=== PATIENT | female | born 1995 | race Caucasian/White ===

== ENCOUNTER 2016-11-29 09:58 | Emergency (ER) | payer MEDICAID ==
--- NOTE | 2016-11-29 10:15 | ER Document Report ---
ED Medical Screen (RME) - General Stated Complaint: EYE PAIN Notes: onset: yesterday sore throat, cough, eye drainage drainage and erythema b/l eyes with clear drainage noncontact wearer I have greeted and performed a rapid initial assessment of this patient. A comprehensive ED assessment and evaluation of the patient, analysis of test results and completion of the medical decision making process will be conducted by additional ED providers. TRAVEL OUTSIDE OF THE [place] IN LAST 30 DAYS: No - Related Data Allergies/Adverse Reactions: No Known Allergies Allergy (Verified 11/29/16 10:13) Past Medical History Pulmonary Medical History: Reports: Hx Asthma - Immunizations Immunizations up to date: Yes Hx Diphtheria, Pertussis, Tetanus Vaccination: Yes
--- NOTE | 2016-11-29 11:21 | ER Document Report ---
ED General - General Chief Complaint: Cold Symptoms Stated Complaint: EYE PAIN Mode of Arrival: Ambulatory Information source: Patient Notes: 21-year-old female presents with complaints of a lateral eye redness discharge ongoing since yesterday. Patient denies any fevers or chills nausea vomiting or diarrhea. Patient denies any visual difficulty TRAVEL OUTSIDE OF THE [place] IN LAST 30 DAYS: No - HPI Onset: Yesterday Onset/Duration: Persistent Quality of pain: Achy Severity: Mild Pain Level: 1 Associated symptoms: Other Exacerbated by: Denies Relieved by: Denies Similar symptoms previously: No Recently seen / treated by doctor: No - Related Data Allergies/Adverse Reactions: No Known Allergies Allergy (Verified 11/29/16 10:13) Past Medical History - Social History Smoking Status: Current Every Day Smoker Cigarette use (# per day): No Chew tobacco use (# tins/day): No Smoking Education Provided: No Frequency of alcohol use: None Drug Abuse: None Family History: Arthritis, DM, Hypertension Patient has suicidal ideation: No Patient has homicidal ideation: No Pulmonary Medical History: Reports: Hx Asthma Renal/ Medical History: Denies: Hx Peritoneal Dialysis - Immunizations Immunizations up to date: Yes Hx Diphtheria, Pertussis, Tetanus Vaccination: Yes Review of Systems - Review of Systems Notes: REVIEW OF SYSTEMS: CONSTITUTIONAL : Denies fever, chills, or sweats. Denies recent illness. EENT: Admits to sore throat admits to discharge from the eyes and redness CARDIOVASCULAR: Denies chest pain. Denies palpitations or racing or irregular heart beat. Denies ankle edema. RESPIRATORY: Denies cough, cold, or chest congestion. Denies shortness of breath, difficulty breathing, or wheezing. GASTROINTESTINAL: Denies abdominal pain or distention. Denies nausea, vomiting , or diarrhea. Denies blood in vomitus, stools, or per rectum. Denies black, tarry stools. Denies constipation. GENITOURINARY: Denies difficulty urinating, painful urination, burning, frequency, blood in urine, or discharge. FEMALE GENITOURINARY: Denies vaginal bleeding, heavy or abnormal periods, irregular periods. Denies vaginal discharge or odor. MUSCULOSKELETAL: Denies back or neck pain or stiffness. Denies joint pain or swelling. SKIN: Denies rash, lesions or sores. HEMATOLOGIC : Denies easy bruising or bleeding. LYMPHATIC: Denies swollen, enlarged glands. NEUROLOGICAL: Denies confusion or altered mental status. Denies passing out or loss of consciousness. Denies dizziness or lightheadedness. Denies headache. Denies weakness or paralysis or loss of use of either side. Denies problems with gait or speech. Denies sensory loss, numbness, or tingling. Denies seizures. PSYCHIATRIC: Denies anxiety or stress. Denies depression, suicidal ideation, or homicidal ideation. ALL OTHER SYSTEMS REVIEWED AND NEGATIVE. Dictation was performed using [employer] voice recognition software PHYSICAL EXAMINATION: GENERAL: Well-appearing, well-nourished and in no acute distress. HEAD: Atraumatic, normocephalic. EYES: Pupils equal round extraocular movements intact, conjunctiva are bilaterally injected left were some right with small amount of discharge ENT: Nares patent NECK: Normal range of motion LUNGS: No respiratory distress Musculoskeletal: Normal range of motion NEUROLOGICAL: Normal speech, normal gait. PSYCH: Normal mood, normal affect. SKIN: Warm, Dry, normal turgor, no rashes or lesions noted. Physical Exam - Vital signs Vitals: Temp Pulse Resp BP Pulse Ox 97.9 F 116 H 20 135/88 H 96 11/29/16 10:16 11/29/16 10:16 11/29/16 10:16 11/29/16 10:16 11/29/16 10:16 Course - Re-evaluation Re-evalutation: 11/29/16 11:16 Physical examination is consistent with conjunctivitis, patient otherwise appears stable. I will start her on antibiotics. Patient has been instructed on very close return precautions as well as precautions for family After performing a Medical Screening Examination, I estimate there is LOW risk for a RETAINED CORNEAL or LID FOREIGN BODY, DEEP SPACE INFECTION (e.g., ORBITAL CELLULITIS OR ABSCESS), ACUTE GLAUCOMA, PENETRATING GLOBE INJURY, RETINAL DETACHMENT, or MENINGITIS thus I consider the discharge disposition reasonable. Also, there is no evidence or peritonitis, sepsis, or toxicity. The patient and I have discussed the diagnosis and risks, and we agree with discharging home with outpatient follow-up with the understanding that symptoms and presentations can change. We also discussed returning to the Emergency Department immediately if new or worsening symptoms occur. We have discussed the symptoms which are most concerning (e.g., changing or worsening pain, vision changes, neck stiffness or fever) that necessitate immediate return. - Vital Signs Vital signs: Temp Pulse Resp BP Pulse Ox 97.9 F 116 H 20 135/88 H 96 11/29/16 10:16 11/29/16 10:16 11/29/16 10:16 11/29/16 10:16 11/29/16 10:16 Discharge - Discharge Clinical Impression: Tachycardia Conjunctivitis Qualifiers: Conjunctivitis type: acute Acute conjunctivitis type: bacterial Laterality: bilateral Qualified Code(s): H10.33 - Unspecified acute conjunctivitis, bilateral Condition: Stable Disposition: HOME, SELF-CARE Instructions: Conjunctivitis ([facility]) Prescriptions: Ciprofloxacin HCl [Ciloxan 0.3% Oph Soln 2.5 ml] 2 drop OU Q6 10 Days Referrals: ALEM GOLDSTEIN MD [ACTIVE STAFF] - Follow up tomorrow
[2016-11-29 11:37] VITALS: BP 120/80
== END 2016-11-29 11:36 | disposition home or self-care (01) ==
LOC: ER 09:58
DX: H10.33 Unspecified acute conjunctivitis, bilateral (principal); R00.0 Tachycardia, unspecified
CPT/HCPCS: 87070; 87077; 87880; 99283

== ENCOUNTER → 2018-11-21 | Outpatient (CLI) | payer SELFPAY ==
--- NOTE | 2018-11-21 15:35 | RADIOLOGY REPORT (SQ) ---
EXAM DESCRIPTION: U/S OB 14+ TRNABD 1GES W/O DOP COMPLETED DATE/TIME: 11/21/2018 2:36 pm REASON FOR STUDY: Z34.02 ENCNTR FOR SUPRVSN OF NORMAL FIRST PREG, SECOND TRIMESTER Z34.02 ENCNTR FO R SUPRVSN OF NORMAL FIRST PREG, SECOND TRIME LMP 07/15/2018 COMPARISON: None. TECHNIQUE: Static and Dynamic grayscale imaging performed of gravid uterus using transabdominal appr oach. Additional selected color Doppler and spectral images recorded. All stored on PACS. LIMITATIONS: None. FINDINGS: FETUSES SEEN:1 EGA: 28 weeks 0 days Calculated using BPD,FL,HC,AC documented on images. The is 10 weeks f urther advanced than would be expected from the given LMP. ANITHA: 02/13/2019 EFW: 961+/- 142 grams PERCENTILE: Percentile not calculated. LVP: 4 cm. PLACENTA: Posterior. There are areas of decreased echogenicity scattered in the placenta suggesting venous lakes. GRADE: I PRESENTATION: Cephalic. ANATOMY: HEART RATE: 168 beats per minute. FOUR CHAMBER HEART: Visualized. THREE VESSEL CORD: Yes. CORD INSERTION: Visualized. KIDNEYS AND BLADDER: Visualized. Appear normal. STOMACH: Visualized. Appears normal. SPINE: Normal as visualized. BRAIN AND LATERAL VENTRICLES: Visualized. Appear normal. OTHER: No other significant finding. MATERNAL ADNEXA: Maternal ovaries not visualized. CERVICAL LENGTH: Not measured. Closed. OTHER: No other significant finding. IMPRESSION: There is a live intrauterine gestation of 28 weeks 0 days. This is almost [address] than would be expected from the given LMP. No anomalies are seen. Trimester of : Third trimester - 28 weeks to delivery. TECHNICAL DOCUMENTATION: JOB ID: [id number] [employer]- All Rights Reserved Reading location - IP/workstation name: [email or web address]
== END ==
LOC: RAD 16:24
PROVIDERS: ATTEND Nurse Practitioner
DX: Z34.02 Encounter for supervision of normal first pregnancy, second trimester (principal)
CPT/HCPCS: 76805

== ENCOUNTER 2019-02-13 06:15 | Outpatient (CLI) | payer MEDICAID ==
[2019-02-13 08:41] LABS: APPEARANCE,URINE CLEAR; BILIRUBIN,URINE NEGATIVE (NEGATIVE); COLOR,URINE YELLOW; GLUCOSE, URINE NEGATIVE (NEGATIVE); KETONES,URINE NEGATIVE (NEGATIVE); LEUKOCYTE ESTERASE,URINE NEGATIVE (NEGATIVE); NITRITE,URINE NEGATIVE (NEGATIVE); PROTEIN,URINE NEGATIVE (NEGATIVE); URINE SPECIFIC GRAVITY 1.009; UROBILINOGEN,URINE NEGATIVE mg/dL (<2.0)
[2019-02-13 09:07] LABS: URINE AMPHETAMINES SCREEN NEGATIVE; URINE BARBITURATES SCREEN NEGATIVE; URINE BENZODIAZEPINES SCREEN NEGATIVE; URINE COCAINE SCREEN NEGATIVE; URINE MARIJUANA (THC) SCREEN NEGATIVE; URINE METHADONE SCREEN NEGATIVE; URINE PHENCYCLIDINE SCREEN NEGATIVE
--- NOTE | 2019-02-13 10:14 | Non Stress Test Report ---
Non Stress Test Datetime Report Generated by CPN: 02/13/2019 10:14 INDICATION Indication for Study: Ordered by Provider MONITORING Monitor Explained: Monitor Explained; Test Explained; Patient Verbalized Understanding Time on Monitor: 02/13/2019 06:55 Time off Monitor: 02/13/2019 07:37 NST Duration: 42 NST INTERVENTIONS NST Interventions: PO Hydration Physician Notified NST: N. Amin CNM BABY A: [id number] BABY A Movement : Present Contraction Frequency : 6-7 FHR Baseline : 140 Accelerations : 15X15 Decelerations : None Variability : Moderate 6-25bpm NST Review: Meets Criteria for Reactive NST NST Review and Verified By : RODRIGUEZ Acharya Results: Reactive NST REPORT Report Trigger: Send Report
== END 2019-02-13 08:55 | disposition home or self-care (01) ==
LOC: LC 06:15
PROVIDERS: ATTEND Obstetrics & Gynecology Gynecology
PROC: 4A1HXCZ Monitoring of Products of Conception, Cardiac Rate, External Approach (ICD-10-PCS; principal; 2019-02-13)
DX: O47.1 False labor at or after 37 completed weeks of gestation (principal); Z3A.40 40 weeks gestation of pregnancy
CPT/HCPCS: 80307; 81005

== ENCOUNTER 2019-02-13 12:52 | Inpatient (IN) | payer MEDICAID ==
[2019-02-13] MEDS ORDERED: RINGERS SOLUTION,LACTATED 1,000 ML IV ONE (13:16)
[2019-02-13] MEDS ORDERED: RINGERS SOLUTION,LACTATED 1,000 ML IV PRN (13:16)
--- NOTE | 2019-02-13 13:22 | Admission Physical ---
Datetime Report Generated by CPN: 02/13/2019 13:22 CURRENT ADMISSION Chief Complaint: Uterine Contractions; Maternal Discomfort Admit Impression : Term, Intrauterine ; Active Labor Admit Plan: Admit to Unit; Initiate Labor Protocol ALLERGIES Medication Allergies: No Medication Allergies: No Known Allergies (02/13/2019) Latex: No Latex Allergies OBSTETRICAL HISTORY EDC: 02/13/2019 00:00 : 1 Para: 0 Current Procedures: Ultrasound; NST Obstetrical History Comments: G1: current SEE RECORDS Cigarettes: Current Everyday Smoker. [id number] PHYSICAL EXAM General: Normal HEENT: Normal Neurologic: Normal Thyroid: Normal Heart: Normal Lungs: Normal Breast: Normal Back: Normal Abdomen: Normal Genitourinary Exam: Normal Extremities: Normal DTRs: Normal Pelvic Type: Adequate Vital Signs: Reviewed; Within Normal Limits VAGINAL EXAM Dilatation: 6 Effacement: 90 Station: -1 MEMBRANES Membranes: Bulging FETUS A EGA: 40.0 Monitoring: External US FHR- Baseline: 135 Variability: Moderate 6-25bpm Accelerations: 15X15 Decelerations: Early Admit Comment: Pt presents for a second time today c/o increasing contractions. Sent home earlier this morning with no cervical change. Denies SROM or bleeding. VE /-1 w/ BBOW. Pt considering an epidural. PLan to admit in active labor. Attending MD is Dr Younger INFORMED CONSENT Assignment: Pebbles Huang MD Signature: with User ID: [email or web address] : with User ID: [email or web address]
[2019-02-13 14:05] LABS: ABSOLUTE EOSINOPHILS # (AUTO) 0.1 10^3/uL (0.0-0.6); ABSOLUTE LYMPHOCYTES (AUTO) 1.5 10^3/uL (0.5-4.7); ABSOLUTE MONOCYTES (AUTO) 0.8 10^3/uL (0.1-1.4); ABSOLUTE NEUT (AUTO) 12.4 10^3/uL (1.7-8.2); BASOPHILS % (AUTO) 0.2 % (0-2); EOSINOPHILS % (AUTO) 0.4 % (0-6); HEMATOCRIT 35.3 % (36.0-47.0); HEMOGLOBIN 12.5 g/dL (12.0-15.5); MEAN CORPUSCULAR HEMOGLOBIN 31.8 pg (27.0-33.4); MEAN CORPUSCULAR HGB CONC 35.3 g/dL (32.0-36.0); MEAN CORPUSCULAR VOLUME 90 fl (80-97); MONOCYTES % (AUTO) 5.1 % (3-13); PLATELET COUNT 258 10^3/uL (150-450); RED BLOOD COUNT 3.92 10^6/uL (3.72-5.28); RED CELL DISTRIBUTION WIDTH 13.2 % (11.5-14.0); SEGMENTED NEUTROPHILS % (AUTO) 84.3 % (42-78); TOTAL CELLS COUNTED % (AUTO) 100 %; WHITE BLOOD COUNT 14.7 10^3/uL (4.0-10.5)
[2019-02-13 14:17] LABS: URINE AMPHETAMINES SCREEN NEGATIVE; URINE BARBITURATES SCREEN NEGATIVE; URINE BENZODIAZEPINES SCREEN NEGATIVE; URINE COCAINE SCREEN NEGATIVE; URINE MARIJUANA (THC) SCREEN NEGATIVE; URINE METHADONE SCREEN NEGATIVE; URINE PHENCYCLIDINE SCREEN NEGATIVE
[2019-02-13] MEDS ORDERED: FENTANYL CITRATE INJ/PF 100 MCG/2 ML AMPUL ONE (14:41)
[2019-02-13] MEDS ORDERED: EPHEDRINE SULFATE INJ 50 MG/1 ML AMPULE ONE (14:41)
[2019-02-13] MEDS ORDERED: PHENYLEPHRINE HCL INJ/PF 10 MG/1 ML SDV ONE (14:41)
[2019-02-13] MEDS ORDERED: BUPIVACAINE HCL 0.25 % INJ/PF (2.5 MG/1 ML) 30 ML VIAL ONE (14:42)
[2019-02-13] MEDS ORDERED: LIDOCAINE 1.5%/EPINEPHRINE INJ 5 ML AMP ONE (14:42)
[2019-02-13] MEDS ORDERED: FENTANYL/BUPIVACAINE/NS/PF 300 MCG/150 ML RTUINJ EPI ONE (14:42)
[2019-02-13] MEDS ORDERED: MISOPROSTOL 0.2 MG TABLET ONE (14:59)
[2019-02-13] MEDS ORDERED: OXYTOCIN 10 UNIT/ML VIAL ONE (14:59)
[2019-02-13] MEDS ORDERED: LIDOCAINE 1% INJ-PF (10 MG/ML) 30 ML SDV ONE (14:59)
[2019-02-13] MEDS ORDERED: OXYTOCIN/NORMAL SALINE 20 UNIT/1,000 ML RTUINJ ONE (14:59)
[2019-02-13] MEDS ORDERED: OXYTOCIN/NORMAL SALINE 20 UNIT/1,000 ML RTUINJ IV PRN ×2 (18:30→22:52)
[2019-02-13] MEDS ORDERED: DIPH/PERTUSS(ACELL)/TETANUS VAC/PF 0.5 ML SYR (>=10YO) IM PRN (22:52)
[2019-02-13] MEDS ORDERED: ZOLPIDEM TARTRATE 5 MG TABLET PO PRN (22:52)
[2019-02-13] MEDS ORDERED: ACETAMINOPHEN WITH CODEINE #3 TABLET PO PRN ×2 (22:52)
[2019-02-13] MEDS ORDERED: DIBUCAINE 1% OINTMENT 56 GM TP PRN (22:52)
[2019-02-13] MEDS ORDERED: BENZOCAINE/MENTHOL AEROSOL SPRAY 56 ML TOP PRN (22:52)
--- NOTE | 2019-02-13 23:51 | Warning Signs in Babies ---
VOD Warning Signs Datetime Report Generated by [facility]: 02/13/2019 23:50 VOD#608 -Warning Signs in Babies: Viewed with Parent(s)/Family (02/13/2019 23:30:Aurora Macias RN)
--- NOTE | 2019-02-14 00:14 | Delivery Summary ---
Del Sum A-C Datetime Report Generated by CPN: 02/14/2019 00:14 DELIVERY PERSONNEL DELIVERY PERSONNEL: [id number] Delivery Doctor:: Pebbles Huang MD Labor and Delivery Nurse:: Aurora Macias RNdust box worker Nurse:: Jodi Saeed RN Nursery Nurse:: Terrie Smith RN Nursery Nurse:: Leydi Banks RN Master Brewer/YOGHURT MAKER: Alana Pierre, ST Additional Personnel: : Shira Marino, RN MATERNAL INFORMATION Delivery Anesthesia: Epidural Medications After Delivery: Pitocin Bolus-Please Comment; Pitocin Drip 20 Units/1000ml NSS Estimated Blood Loss (ml): 500 Maternal Complications: None LABOR SUMMARY EDC: 02/13/2019 00:00 No. Babies in Womb: 1 Attempted: No Labor Anesthesia: Epidural LABOR INFORMATION Reason for Induction: Not Applicable Onset of Labor: 02/13/2019 13:13 Complete Dilatation: 02/13/2019 20:18 Oxytocin: Augmentation Group B Beta Strep: Negative Antibiotics # of Doses: 0 Antibiotics Time of Last Dose: 0 Name of Antibiotic Given: 0 Steroids Given: None Reason Steroids Not Administered: Not Applicable MEMBRANES Membranes Rupture Method: Artificial Rupture of Membranes: 02/13/2019 16:09 Length of Rupture (hr): 6.18 Amniotic Fluid Color: Clear Amniotic Fluid Amount: Small Amniotic Fluid Odor: Normal STAGES OF LABOR Stage 1 hr: 7 Stage 1 min: 5 Stage 2 hr: 2 Stage 2 min: 2 Stage 3 hr: 0 Stage 3 min: 7 Total Time in Labor hr: 9 Total Time in Labor min: 14 VAGINAL DELIVERY Episiotomy: None Laceration #1: Vaginal Laceration Extension #1: Second Degree Laceration Repair: Yes Laceration Repair Note: repaired with 2-0 vicryl Sponge Count Correct: N/A Sharps Count Correct: N/A CSECTION DELIVERY Primary Indication: N/A Secondary Indication: N/A CSection Incidence: N/A Labor: N/A Elective: N/A CSection Incision: N/A BABY A INFORMATION Infant Delivery Date/Time: 02/13/2019 22:20 Method of Delivery: Vaginal Born in Route : No : N/A Forceps: N/A Vacuum Extraction: N/A Shoulder Dystocia : Yes PRESENTATION/POSITION BABY A Presentation: Cephalic Cephalic Presentation: Vertex Vertex Position: Right Occipital Anterior Breech Presentation: N/A PLACENTA INFORMATION BABY A Placenta Delivery Time : 02/13/2019 22:27 Placenta Method of Delivery: Spontaneous Placenta Status: Delivered SCORES BABY A Heart Rate 1 min: >100 bpm Resp Effort 1 min: Good Cry Reflex Irritability 1 min: Cough or Sneeze or Pulls Away Muscle Tone 1 min: Active Motion Color 1 min: Body [place], Extremities Blue Resuscitation Effort 1 min: N/A SCORE 1 MIN: 9 Heart Rate 5 min: >100 bpm Resp Effort 5 min: Good Cry Reflex Irritability 5 min: Cough or Sneeze or Pulls Away Muscle Tone 5 min: Some Flexion of Extremities Color 5 min: Completely [place] Resuscitation Effort 5 min: N/A SCORE 5 MIN: 9 INFANT INFORMATION BABY A Gestational Age at Delivery: 40.0 Gestational Status: Full Term- 39- 40.6 Weeks Infant Outcome : Liveborn Condition : Stable Sex: Male IDENTIFICATION BABY A Infant Verification Date/Time: 02/13/2019 22:59 ID Band Number: [id number] Mother's Name Verified: Yes RN Verifying Infant: C. Gentilin, RN N. Marino, RN WEIGHT/LENGTH BABY A Birthweight (gm): 3191 Infant Weight (lb): 7 Weight (oz): 1 Length (in): 19.50 Length (cm): 49.53 CORD INFORMATION BABY A No. Cord Vessels: 3 Nuchal Cord : N/A Cord Blood Taken: Yes-For Eval (Mom's Blood Type - or O+) Infant Suction: Mouth ASSESSMENT BABY A Complications: None Physical Findings at Delivery: Bruising Respirations: Appears Normal Skin to Skin: Yes Superintendent Of Generation/ALS Called : No Infant Care By: Terrie Sarah, RN Transferred To: Remains with Mother BABY B INFORMATION : N/A SIGNATURES Signature: with User ID: [email or web address]
[2019-02-14] MEDS: IBUPROFEN 800 MG TABLET PO SCH ×3 (05:05→21:38)
[2019-02-14 10:12] LABS: HEMATOCRIT 27.5 % (36.0-47.0); MEAN CORPUSCULAR VOLUME 91 fl (80-97); PLATELET COUNT 235 10^3/uL (150-450); RED BLOOD COUNT 3.01 10^6/uL (3.72-5.28); RED CELL DISTRIBUTION WIDTH 13.3 % (11.5-14.0); WHITE BLOOD COUNT 16.1 10^3/uL (4.0-10.5)
[2019-02-14 10:23] LABS: HEMOGLOBIN 9.6 g/dL (12.0-15.5)
[2019-02-14] MEDS: FERROUS SULFATE 325 MG TABLET PO SCH ×2 (10:28→18:05)
[2019-02-14] MEDS: DOCUSATE SODIUM 100 MG CAPSULE PO SCH ×2 (10:29→18:05)
[2019-02-14] MEDS: PRENATAL VITAMIN W DHA CAPSULE PO SCH (10:29)
[2019-02-14] MEDS: SENNOSIDES/DOCUSATE 8.6-50 MG 1 EACH TABLET PO SCH (10:29)
--- NOTE | 2019-02-14 13:08 | PDOC PROGRESS REPORT ---
Subjective-OB Progress Note for:: 02/14/19 Subjective: 23yo G1 now P1 s/p ppd1. Pt. ambulating and voiding without difficulty. Pain well controlled with medication, no concerns at this time. Physical Exam (OB) Vital Signs: Temp Pulse Resp BP Pulse Ox 98.6 F 85 16 104/51 L 96 02/14/19 07:33 02/14/19 07:33 02/14/19 07:33 02/14/19 07:33 02/14/19 07:33 Intake & Output 02/13/19 02/14/19 02/15/19 06:59 06:59 06:59 Weight 86 kg - General General Appearance: Appears well In distress: None - PIH/Pre-Eclampsia DTR's: 1 + Clonus: Negative Headache: Absent Epigastric Pain: No Visual Changes: No - Episiotomy/Laceration Site Condition: Well Approximated - Lochia Lochia Amount: Scant < 10 ml Lochia Color: Rubra/Red - Abdomen Description: Soft, Round Hernia Present: No Fundal Description: Firm, Midline Fundal Height: u/u - u/2 - Respiratory Respiratory Status: No respiratory distress - Extremities Upper extremity: Normal inspection Lower extremities: Normal inspection - Neurological Cognition: Normal Orientation: AAOx4 - Psychological Associated symptoms: Normal affect, Normal mood Objective-Diagnostic Laboratory: 02/14/19 09:11 02/13/19 02/13/19 02/14/19 13:39 13:39 09:11 WBC 14.7 H 16.1 H RBC 3.92 3.01 L Hgb 12.5 9.6 L D Hct 35.3 L 27.5 L MCV 90 91 MCH 31.8 32.0 MCHC 35.3 35.0 RDW 13.2 13.3 Plt Count 258 235 Seg Neutrophils % 84.3 H Lymphocytes % 10.0 L Monocytes % 5.1 Eosinophils % 0.4 Basophils % 0.2 Absolute Neutrophils 12.4 H Absolute Lymphocytes 1.5 Absolute Monocytes 0.8 Absolute Eosinophils 0.1 Absolute Basophils 0.0 Blood Type O POSITIVE Antibody Screen NEGATIVE Assessment and Plan(PN) - Assessment and Plan (1) Acute blood loss anemia Is this a current diagnosis for this admission?: Yes Plan: Increase dietary iron and FeSO4 BID (2) High vaginal laceration during delivery Is this a current diagnosis for this admission?: Yes Plan: monitor for s/s of infection. (3) Current every day smoker Is this a current diagnosis for this admission?: Yes Plan: cessation encouraged (4) Vaginal delivery Is this a current diagnosis for this admission?: Yes Plan: Routine pp care - Time Spent with Patient Time with patient: Less than 15 minutes Smoking Education Provided: Over 3 minutes Medications reviewed and adjusted accordingly: Yes - Disposition Anticipated Discharge: Home Within: within 24 hours
[2019-02-14] MEDS ORDERED: GUAIFENESIN/D-METHORPHAN (200-20 MG) SYRUP 10 ML PO PRN (20:04)
[2019-02-15] MEDS: IBUPROFEN 800 MG TABLET PO SCH (05:06)
[2019-02-15 09:10] VITALS: BP 126/78
[2019-02-15] MEDS: DOCUSATE SODIUM 100 MG CAPSULE PO SCH (09:38)
[2019-02-15] MEDS: SENNOSIDES/DOCUSATE 8.6-50 MG 1 EACH TABLET PO SCH (09:38)
[2019-02-15] MEDS: FERROUS SULFATE 325 MG TABLET PO SCH (09:38)
[2019-02-15] MEDS: PRENATAL VITAMIN W DHA CAPSULE PO SCH (09:38)
--- NOTE | 2019-02-15 10:28 | PDOC PROGRESS REPORT ---
Subjective-OB Progress Note for:: 02/15/19 Subjective: Ready for discharge. Physical Exam (OB) Vital Signs: Temp Pulse Resp BP Pulse Ox 97.8 F 90 16 126/78 H 99 02/15/19 08:36 02/15/19 08:36 02/15/19 08:36 02/15/19 08:36 02/15/19 08:36 Intake & Output 02/14/19 02/15/19 02/16/19 06:59 06:59 06:59 Intake Total 480 480 Balance 480 480 Weight 86 kg - PIH/Pre-Eclampsia DTR's: 1 + Clonus: Negative Headache: Absent Epigastric Pain: No Visual Changes: No - Lochia Lochia Amount: Scant < 10 ml Lochia Color: Rubra/Red - Abdomen Description: Soft, Round Hernia Present: No Bowel Sounds: Normoactive Flatus Presence: Present Stool: Yes Fundal Description: Firm Fundal Height: u/u - u/2 Objective-Diagnostic Laboratory: 02/14/19 09:11 Assessment and Plan(PN) - Time Spent with Patient Smoking Education Provided: Over 3 minutes Medications reviewed and adjusted accordingly: Yes - Disposition Anticipated Discharge: Home
--- NOTE | 2019-02-15 10:36 | PDOC DISCHARGE SUMMARY ---
Final Diagnosis Discharge Date: 02/15/19 - Final Diagnosis (2) Current every day smoker Is this a current diagnosis for this admission?: Yes (3) High vaginal laceration during delivery Is this a current diagnosis for this admission?: Yes (4) Insufficient antepartum care Is this a current diagnosis for this admission?: Yes (5) Obesity Is this a current diagnosis for this admission?: Yes (6) Vaginal delivery Is this a current diagnosis for this admission?: Yes Discharge Data - Discharge Medication Prescriptions: Ferrous Sulfate [Feosol 325 mg Tablet] 325 mg PO BID #60 tablet Home Medications: Vits96/Iron Fum/Folic [ Tablet] 1 tab PO DAILY 02/13/19 Ferrous Sulfate [Feosol 325 mg Tablet] 325 mg PO BID #60 tablet 02/15/19 Gestational Age: 40.0 wks Reason(s) for Admission: Onset of Labor Procedures: Ultrasound Intrapartum Procedure(s): Spontaneous Vaginal Delivery Complication(s): Laceration-Vaginal Laceration-Degree: 2nd - [place] Data Baby 1 Male at 1 minute: 9 at 5 minutes: 9 Weight: 3.203 kg Home with Mother: Yes Complications: No - Diagnosis Test Laboratory: Temp Pulse Resp BP Pulse Ox 97.8 F 90 16 126/78 H 99 02/15/19 08:36 02/15/19 08:36 02/15/19 08:36 02/15/19 08:36 02/15/19 08:36 02/13/19 02/13/19 02/14/19 13:08 13:39 09:11 RBC 3.92 3.01 L Hgb 12.5 9.6 L D Hct 35.3 L 27.5 L Urine Opiates Screen NEGATIVE - Discharge information/Instructions Discharge Activity: Activity As Tolerated, Balance Activity w/Rest, Pelvic Rest, Slowly Increase Activity, No tub bath Discharge Diet: Regular Disposition: HOME, SELF-CARE Follow up with: [facility] in: 4, Weeks
== END 2019-02-15 13:04 | disposition home or self-care (01) | DRG 806 ==
LOC: LC 12:52 → LR 13:21 → 2S 02-14 00:31
PROVIDERS: ADMIT Obstetrics & Gynecology; ATTEND Obstetrics & Gynecology
PROC: 10E0XZZ Delivery of Products of Conception, External Approach (ICD-10-PCS; principal; 2019-02-13)
PROC: 0KQM0ZZ Repair Perineum Muscle, Open Approach (ICD-10-PCS; 2019-02-13)
PROC: 10907ZC Drainage of Amniotic Fluid, Therapeutic from Products of Conception, Via Natural or Artificial Opening (ICD-10-PCS; 2019-02-13)
PROC: 4A1HXCZ Monitoring of Products of Conception, Cardiac Rate, External Approach (ICD-10-PCS; 2019-02-13)
DX: O71.4 Obstetric high vaginal laceration alone (principal); D62 Acute posthemorrhagic anemia; Z37.0 Single live birth; O99.334 Smoking (tobacco) complicating childbirth; F17.200 Nicotine dependence, unspecified, uncomplicated; O99.214 Obesity complicating childbirth; E66.9 Obesity, unspecified; O90.81 Anemia of the puerperium; Z3A.40 40 weeks gestation of pregnancy
CPT/HCPCS: 36415; 80307; 85025; 85027; 86592; 86850; 86900; 86901; 94760; J2370; J2590; J3010; J3490

== ENCOUNTER 2020-04-14 00:38 | Inpatient (IN) | payer MEDICAID ==
--- NOTE | 2020-04-14 01:12 | Admission Physical ---
Datetime Report Generated by CPN: 04/14/2020 01:11 CURRENT ADMISSION Chief Complaint: Uterine Contractions Indication for Induction: Not Applicable Admit Impression : Term, Intrauterine ; Active Labor Admit Plan: Admit to Unit ALLERGIES Medication Allergies: No Known Allergies (02/13/2019) PHYSICAL EXAM General: Normal HEENT: Normal Neurologic: Normal Thyroid: Normal Heart: Normal Lungs: Normal Breast: Deferred Back: Normal Abdomen: Normal Genitourinary Exam: Normal Extremities: Normal DTRs: Normal Pelvic Type: Adequate Vital Signs: Reviewed VAGINAL EXAM Dilatation: 6 Effacement: 100 Station: -2 MEMBRANES Pooling: Negative Membranes: Intact FETUS A FHR- Baseline: 120 Variability: Moderate 6-25bpm Decelerations: None FHR Category: Category I Presentation: vtx Admit Comment: admit for labor INFORMED CONSENT Signature: with User ID: [email or web address]
[2020-04-14] MEDS ORDERED: OXYTOCIN/0.9 % SODIUM CHLORIDE 30 UNIT/500 ML RTUINJ ONE (01:36)
[2020-04-14] MEDS ORDERED: MISOPROSTOL 0.2 MG TABLET ONE (01:36)
[2020-04-14] MEDS ORDERED: LIDOCAINE 1% INJ-PF (10 MG/ML) 30 ML SDV ONE (01:36)
[2020-04-14] MEDS ORDERED: FENTANYL CITRATE INJ/PF 100 MCG/2 ML AMPUL ONE ×2 (01:36→02:08)
[2020-04-14] MEDS ORDERED: OXYTOCIN 10 UNIT/ML VIAL ONE (01:36)
[2020-04-14] MEDS ORDERED: FENTANYL/BUPIVACAINE/NS/PF 0 MCG/0 ML RTUINJ EPI ONE (01:37)
[2020-04-14] MEDS ORDERED: EPHEDRINE SULFATE INJ 50 MG/1 ML AMPULE ONE (01:37)
[2020-04-14] MEDS ORDERED: BUPIVACAINE HCL 0.25 % INJ/PF (2.5 MG/1 ML) 30 ML VIAL ONE (01:37)
[2020-04-14 01:48] LABS: ABSOLUTE EOSINOPHILS # (AUTO) 0.2 10^3/uL (0.0-0.6); ABSOLUTE LYMPHOCYTES (AUTO) 1.9 10^3/uL (0.5-4.7); ABSOLUTE MONOCYTES (AUTO) 0.9 10^3/uL (0.1-1.4); ABSOLUTE NEUT (AUTO) 12.5 10^3/uL (1.7-8.2); BASOPHILS % (AUTO) 0.2 % (0-2); EOSINOPHILS % (AUTO) 1.1 % (0-6); HEMATOCRIT 37.2 % (36.0-47.0); HEMOGLOBIN 12.7 g/dL (12.0-15.5); LYMPHOCYTES % (AUTO) 12.1 % (13-45); MEAN CORPUSCULAR HEMOGLOBIN 31.6 pg (27.0-33.4); MEAN CORPUSCULAR HGB CONC 34.2 g/dL (32.0-36.0); MEAN CORPUSCULAR VOLUME 92 fl (80-97); MONOCYTES % (AUTO) 5.9 % (3-13); PLATELET COUNT 270 10^3/uL (150-450); RED BLOOD COUNT 4.03 10^6/uL (3.72-5.28); SEGMENTED NEUTROPHILS % (AUTO) 80.7 % (42-78); TOTAL CELLS COUNTED % (AUTO) 100 %; WHITE BLOOD COUNT 15.5 10^3/uL (4.0-10.5)
[2020-04-14] MEDS ORDERED: BUPIVACAINE HCL 0.5 % INJ/PF 30 ML SDV ONE (02:07)
[2020-04-14] MEDS ORDERED: EPINEPHRINE INJ/PF 1 MG/1 ML AMPULE ONE (02:07)
[2020-04-14] MEDS ORDERED: ACETAMINOPHEN WITH CODEINE #3 TABLET PO PRN ×2 (02:10)
[2020-04-14] MEDS ORDERED: OXYTOCIN/0.9 % SODIUM CHLORIDE 30 UNIT/500 ML RTUINJ IV PRN (02:10)
[2020-04-14] MEDS ORDERED: BENZOCAINE/MENTHOL AEROSOL SPRAY 56 ML TOP PRN (02:10)
[2020-04-14] MEDS ORDERED: DIPH/PERTUSS(ACELL)/TETANUS VAC/PF 0.5 ML SYR (>=10YO) IM PRN (02:10)
[2020-04-14] MEDS ORDERED: GLYCERIN/WITCH HAZEL LEAF 1 EACH MED..WIPE TP PRN (02:10)
[2020-04-14] MEDS ORDERED: PSEUDOEPHEDRINE HCL 30 MG TABLET PO PRN (02:10)
[2020-04-14] MEDS ORDERED: ACETAMINOPHEN 650 MG SUPP.RECT PR PRN (02:10)
[2020-04-14] MEDS ORDERED: NA PHOS,M-B/NA PHOS,DI-BA (ADULT) 133 ML ENEMA PR PRN (02:10)
[2020-04-14] MEDS ORDERED: PROMETHAZINE HCL INJ 25 MG/1 ML VIAL IV PRN (02:10)
[2020-04-14] MEDS ORDERED: MEASLES,MUMPS&RUBELLA VACC/PF 0.5 ML VIAL SUBCUT PRN (02:10)
[2020-04-14] MEDS ORDERED: PROMETHAZINE HCL 25 MG SUPP.RECT PR PRN (02:10)
[2020-04-14] MEDS ORDERED: DIBUCAINE 1% OINTMENT 28 GM TP PRN (02:10)
[2020-04-14] MEDS ORDERED: ZOLPIDEM TARTRATE 5 MG TABLET PO PRN (02:10)
[2020-04-14] MEDS ORDERED: MAGNESIUM HYDROXIDE SUSP 30 ML UDCUP PO PRN (02:10)
[2020-04-14] MEDS ORDERED: DIPHENHYDRAMINE HCL 25 MG CAPSULE PO PRN (02:10)
[2020-04-14] MEDS ORDERED: PROMETHAZINE HCL 25 MG TABLET PO PRN (02:10)
[2020-04-14 03:43] LABS: URINE AMPHETAMINES SCREEN NEGATIVE; URINE BARBITURATES SCREEN NEGATIVE; URINE BENZODIAZEPINES SCREEN NEGATIVE; URINE COCAINE SCREEN NEGATIVE; URINE MARIJUANA (THC) SCREEN NEGATIVE; URINE METHADONE SCREEN NEGATIVE; URINE PHENCYCLIDINE SCREEN NEGATIVE
--- NOTE | 2020-04-14 05:49 | Delivery Summary ---
Del Sum A-C Datetime Report Generated by CPN: 04/14/2020 05:48 DELIVERY PERSONNEL DELIVERY PERSONNEL: [id number] Delivery Doctor:: Tommie Monteiro MD Labor and Delivery Nurse:: Juani Chatman RNzinc furnace charger Nurse:: ABEBE Mckeon Clinical Lab Scientist/MAKER UP FOLDING: Alisia Nichols, ONLINE MARKETING STRATEGIST MATERNAL INFORMATION Delivery Anesthesia: Intrathecal Medications After Delivery: Pitocin Bolus-Please Comment Meds After Delivery Comment: Pitocin 30 units in 500 mL NS Estimated Blood Loss (ml): 250 Delivery QBL: 250 Maternal Complications: None LABOR SUMMARY EDC: 04/09/2020 00:00 No. Babies in Womb: 1 Attempted: No Labor Anesthesia: Intrathecal LABOR INFORMATION Reason for Induction: Not Applicable Onset of Labor: 04/14/2020 00:54 Complete Dilatation: 04/14/2020 03:39 Oxytocin: N/A Group B Beta Strep: Negative Antibiotics # of Doses: 0 Steroids Given: None Reason Steroids Not Administered: Not Applicable MEMBRANES Membranes Rupture Method: Artificial Rupture of Membranes: 04/14/2020 03:39 Length of Rupture (hr): 1.20 Amniotic Fluid Color: Clear Amniotic Fluid Amount: Moderate Amniotic Fluid Odor: Normal STAGES OF LABOR Stage 1 hr: 2 Stage 1 min: 45 Stage 2 hr: 1 Stage 2 min: 12 Stage 3 hr: 0 Stage 3 min: 7 Total Time in Labor hr: 4 Total Time in Labor min: 4 VAGINAL DELIVERY Episiotomy: None Laceration #1: Perineal Laceration Extension #1: First Degree Laceration #2: None Laceration Extension #2: N/A Laceration #3: None Laceration Extension #3: N/A Laceration Repair: No Laceration Repair Note: very small perineal laceration and repair not needed Sponge Count Correct: Vaginal Sweep Performed Sharps Count Correct: Yes CSECTION DELIVERY Primary Indication: N/A Secondary Indication: N/A CSection Incidence: N/A Labor: N/A Elective: N/A CSection Incision: N/A BABY A INFORMATION Delivery Date/Time: 04/14/2020 04:51 Method of Delivery: Vaginal Nurse Controlled Delivery: No Born in Route : No : N/A Forceps: N/A Vacuum Extraction: N/A Shoulder Dystocia : No PRESENTATION/POSITION BABY A Presentation: Cephalic Cephalic Presentation: Vertex Vertex Position: Left Occipital Anterior Breech Presentation: N/A PLACENTA INFORMATION BABY A Placenta Delivery Time : 04/14/2020 04:58 Placenta Method of Delivery: Spontaneous Placenta Status: Delivered SCORES BABY A Heart Rate 1 min: >100 bpm Resp Effort 1 min: Good Cry Reflex Irritability 1 min: Cough or Sneeze or Pulls Away Muscle Tone 1 min: Active Motion Color 1 min: Body [place], Extremities Blue Resuscitation Effort 1 min: Tactile Stimulation SCORE 1 MIN: 9 Heart Rate 5 min: >100 bpm Resp Effort 5 min: Good Cry Reflex Irritability 5 min: Cough or Sneeze or Pulls Away Muscle Tone 5 min: Active Motion Color 5 min: Body [place], Extremities Blue SCORE 5 MIN: 9 INFORMATION BABY A Gestational Age at Delivery: 40.5 Gestational Status: Full Term- 39- 40.6 Weeks Outcome : Liveborn Condition : Stable Sex: Male IDENTIFICATION BABY A Verification Date/Time: 04/14/2020 05:04 ID Band Number: [id number] Mother's Name Verified: Yes Infant RN Verifying : D Bellavance RN/K Emiliano RN WEIGHT/LENGTH BABY A Infant Birthweight (gm): 3371 Weight (lb): 7 Weight (oz): 7 Infant Length (in): 21.25 Length (cm): 53.98 CORD INFORMATION BABY A No. Cord Vessels: 3 Nuchal Cord : N/A Cord Blood Taken: Yes-For Eval (Mom's Blood Type - or O+) Suction: None ASSESSMENT BABY A Complications: None Physical Findings at Delivery: Within Normal Limits Respirations: Appears Normal Skin to Skin: Yes Skin to Skin Time (min): 60 Transferred To: Remains with Mother BABY B INFORMATION : N/A SIGNATURES Signature: with User ID: [email or web address]
--- NOTE | 2020-04-14 07:07 | Warning Signs in Babies ---
VOD Warning Signs Datetime Report Generated by [facility]: 04/14/2020 07:06 VOD#608 -Warning Signs in Babies: Viewed with Parent(s)/Family (04/14/2020 06:45:Juani Chatman RN)
[2020-04-14] MEDS: IBUPROFEN 800 MG TABLET PO SCH ×3 (09:02→21:55)
[2020-04-14] MEDS: FAMOTIDINE 20 MG TABLET PO SCH ×2 (10:26→21:56)
[2020-04-14] MEDS: FERROUS SULFATE 325 MG TABLET PO SCH ×2 (10:26→17:38)
[2020-04-14] MEDS: DOCUSATE SODIUM 100 MG CAPSULE PO SCH ×2 (10:26→17:38)
[2020-04-14] MEDS: PRENATAL VITAMIN W DHA CAPSULE PO SCH (10:26)
[2020-04-14] MEDS: SENNOSIDES/DOCUSATE 8.6-50 MG 1 EACH TABLET PO SCH (10:26)
[2020-04-15] MEDS: IBUPROFEN 800 MG TABLET PO SCH ×3 (07:46→21:11)
[2020-04-15 07:59] LABS: HEMATOCRIT 36.3 % (36.0-47.0); HEMOGLOBIN 12.5 g/dL (12.0-15.5); MEAN CORPUSCULAR HEMOGLOBIN 32.1 pg (27.0-33.4); MEAN CORPUSCULAR HGB CONC 34.3 g/dL (32.0-36.0); MEAN CORPUSCULAR VOLUME 94 fl (80-97); PLATELET COUNT 215 10^3/uL (150-450); RED BLOOD COUNT 3.89 10^6/uL (3.72-5.28); RED CELL DISTRIBUTION WIDTH 13.3 % (11.5-14.0); WHITE BLOOD COUNT 11.1 10^3/uL (4.0-10.5)
--- NOTE | 2020-04-15 09:25 | PDOC PROGRESS REPORT ---
Subjective-OB Progress Note for:: 04/15/20 Physical Exam (OB) Vital Signs: Temp Pulse Resp BP Pulse Ox 97.8 F 72 16 101/50 L 99 04/15/20 08:00 04/15/20 08:00 04/15/20 08:00 04/15/20 08:00 04/15/20 08:00 Intake & Output 04/14/20 04/15/20 04/16/20 06:59 06:59 06:59 Weight 95 kg - PIH/Pre-Eclampsia DTR's: 2 + Clonus: Negative Headache: Absent Epigastric Pain: No Visual Changes: No - Lochia Lochia Amount: Scant < 10 ml Lochia Color: Rubra/Red - Abdomen Description: Soft, Round Hernia Present: No Bowel Sounds: Normoactive Flatus Presence: Present Stool: No Fundal Description: Firm, Midline Fundal Height: u/u - u/2 Objective-Diagnostic Laboratory: 04/15/20 07:19 04/15/20 07:19 WBC 11.1 H RBC 3.89 Hgb 12.5 Hct 36.3 MCV 94 MCH 32.1 MCHC 34.3 RDW 13.3 Plt Count 215
[2020-04-15] MEDS: SENNOSIDES/DOCUSATE 8.6-50 MG 1 EACH TABLET PO SCH (09:57)
[2020-04-15] MEDS: FERROUS SULFATE 325 MG TABLET PO SCH ×2 (09:57→17:50)
[2020-04-15] MEDS: PRENATAL VITAMIN W DHA CAPSULE PO SCH (09:57)
[2020-04-15] MEDS: FAMOTIDINE 20 MG TABLET PO SCH ×2 (09:57→21:11)
[2020-04-15] MEDS: DOCUSATE SODIUM 100 MG CAPSULE PO SCH ×2 (09:57→17:50)
[2020-04-16] MEDS: IBUPROFEN 800 MG TABLET PO SCH (05:44)
[2020-04-16 09:10] VITALS: BP 101/50
--- NOTE | 2020-04-16 09:13 | PDOC DISCHARGE SUMMARY ---
Impression - Admit/DC Date/PCP Admission Date/Primary Care Provider: 04/14/20 00:56 JESSICA BUSH MD Discharge Date: 04/16/20 - Discharge Diagnosis (1) Insufficient antepartum care Is this a current diagnosis for this admission?: Yes (2) Acute blood loss anemia Is this a current diagnosis for this admission?: Yes (3) Current every day smoker Is this a current diagnosis for this admission?: Yes (4) High vaginal laceration during delivery Is this a current diagnosis for this admission?: Yes (5) Obesity Is this a current diagnosis for this admission?: Yes (6) Vaginal delivery Is this a current diagnosis for this admission?: Yes - Additional Information Resuscitation Status: Full Code Discharge Diet: Regular Discharge Activity: Balance Activity w/Rest, Pelvic Rest Referrals: JESSICA BUSH MD [Primary Care Provider] - Prescriptions: Ibuprofen [Motrin 800 mg Tablet] 800 mg PO Q8HP PRN #60 tablet PRN Reason: Home Medications: Vits96/Iron Fum/Folic [ Tablet] 1 tab PO DAILY 02/13/19 Ferrous Sulfate [Feosol 325 mg Tablet] 325 mg PO BID #60 tablet 02/15/19 Ibuprofen [Motrin 800 mg Tablet] 800 mg PO Q8HP PRN #60 tablet 04/16/20 HPI Gestational Age: 40.5 Reason(s) for Admission: Onset of Labor Procedures: NST Intrapartum Procedure(s): Spontaneous Vaginal Delivery Complication(s): Laceration-Perineal Results Laboratory Results: WBC 11.1 10^3/uL (4.0-10.5) H 04/15/20 07:19 RBC 3.89 10^6/uL (3.72-5.28) 04/15/20 07:19 Hgb 12.5 g/dL (12.0-15.5) 04/15/20 07:19 Hct 36.3 % (36.0-47.0) 04/15/20 07:19 MCV 94 fl (80-97) 04/15/20 07:19 MCH 32.1 pg (27.0-33.4) 04/15/20 07:19 MCHC 34.3 g/dL (32.0-36.0) 04/15/20 07:19 RDW 13.3 % (11.5-14.0) 04/15/20 07:19 Plt Count 215 10^3/uL (150-450) 04/15/20 07:19 Lymph % (Auto) 12.1 % (13-45) L 04/14/20 01:34 [place] % (Auto) 5.9 % (3-13) 04/14/20 01:34 Eos % (Auto) 1.1 % (0-6) 04/14/20 01:34 Baso % (Auto) 0.2 % (0-2) 04/14/20 01:34 Absolute Neuts (auto) 12.5 10^3/uL (1.7-8.2) H 04/14/20 01:34 Absolute Lymphs (auto) 1.9 10^3/uL (0.5-4.7) 04/14/20 01:34 Absolute Monos (auto) 0.9 10^3/uL (0.1-1.4) 04/14/20 01:34 Absolute Eos (auto) 0.2 10^3/uL (0.0-0.6) 04/14/20 01:34 Absolute Basos (auto) 0.0 10^3/uL (0.0-0.2) 04/14/20 01:34 Seg Neutrophils % 80.7 % (42-78) H 04/14/20 01:34 Urine Opiates Screen NEGATIVE 04/14/20 00:48 Urine Methadone Screen NEGATIVE 04/14/20 00:48 Ur Barbiturates Screen NEGATIVE 04/14/20 00:48 Ur Phencyclidine Scrn NEGATIVE 04/14/20 00:48 Ur Amphetamines Screen NEGATIVE 04/14/20 00:48 U Benzodiazepines Scrn NEGATIVE 04/14/20 00:48 Urine Cocaine Screen NEGATIVE 04/14/20 00:48 U Marijuana (THC) Screen NEGATIVE 04/14/20 00:48 RPR NONREACTIVE (NONREACTIVE) 04/14/20 01:34 Blood Type O POSITIVE 04/14/20 01:34 Antibody Screen NEGATIVE 04/14/20 01:34 Plan Plan of Treatment: f/u at [facility] Time Spent: Less than 30 Minutes
[2020-04-16] MEDS: FERROUS SULFATE 325 MG TABLET PO SCH (09:42)
[2020-04-16] MEDS: PRENATAL VITAMIN W DHA CAPSULE PO SCH (09:42)
[2020-04-16] MEDS: DOCUSATE SODIUM 100 MG CAPSULE PO SCH (09:42)
[2020-04-16] MEDS: SENNOSIDES/DOCUSATE 8.6-50 MG 1 EACH TABLET PO SCH (09:43)
[2020-04-16] MEDS: FAMOTIDINE 20 MG TABLET PO SCH (09:43)
== END 2020-04-16 13:30 | disposition home or self-care (01) | DRG 807 ==
LOC: LC 00:38 → LR 00:56 → 2S 08:43
PROVIDERS: ADMIT Obstetrics & Gynecology; ATTEND Obstetrics & Gynecology
PROC: 10E0XZZ Delivery of Products of Conception, External Approach (ICD-10-PCS; principal; 2020-04-14)
DX: O99.334 Smoking (tobacco) complicating childbirth (principal); Z37.0 Single live birth; F17.210 Nicotine dependence, cigarettes, uncomplicated; O70.0 First degree perineal laceration during delivery; Z3A.40 40 weeks gestation of pregnancy
CPT/HCPCS: 36415; 80307; 85025; 85027; 86592; 86850; 86900; 86901; J0171; J2590; J3010; J3490